=== PATIENT | female | born 1995 | race Caucasian/White ===

== ENCOUNTER 2017-06-05 03:21 | Emergency (ER) | payer OTHER ==
[~2017-06-05] VITALS: Ht 172.7 cm; Wt 72.6 kg
[2017-06-05] MEDS ORDERED: AMOX-358 PO (03:41)
[2017-06-05] MEDS ORDERED: NORE-122 PO (03:41)
--- NOTE | 2017-06-05 03:47 | ED EENT ---
History of Present Illness General Chief Complaint: Oral/Throat Problems Stated Complaint: THROAT PAIN Nursing Triage Note: c/o throat pain, reports was evaluated at urgent care yesterday for same and given augmentin Source: patient Exam Limitations: no limitations History of Present Illness Time seen by provider: 03:38 Initial Comments Patient has ER by private conveyance with a chief complaint of 2 days progressively worsening sore throat and inability to swallow foods. She has had malaise and body aches. She was seen in urgent care area stay where they did a negative rapid strep test and a negative mono test. She was told that they thought it was probably infectious and bacterial nature so they put her on Augmentin. She is gotten 2 doses in. She does not feel is gotten any better. She 's not using any [id number]'s, Tylenol, ibuprofen, Chloraseptic, saltwater gargle, etc. Patient's having no fevers, nausea vomiting, diarrhea, rash. Allergies and Home Medications Allergies Coded Allergies: No Known Drug Allergies (Unverified , 06/05/17) Home Medications Amoxicillin/Potassium Clav 1 Each Tablet, 1 EACH PO, (Reported) Norethindrone-E.estradiol-Iron 1 Each Tablet, 1 EACH PO, (Reported) Review of Systems Constitutional: No chills, No diaphoresis Eyes: Denies Drainage, Denies Pain Ears: Denies Pain, Denies Bloody Discharge, Denies Clear Discharge, Denies Purulent Discharge, Denies Serosanguinous Discharge Nose: denies pain, denies serosanguinous discharge Mouth: denies pain, denies swelling Throat: see HPI, pain, swelling, denies hoarse, painful swallowing, difficulty with fluids Respiratory: No cough, No phlegm, No short of breath, No wheezing Cardiovascular: No edema, No syncope Gastrointestinal: No abdominal pain, No constipation, No diarrhea, No nausea, No vomiting : No (oral contraceptives) Musculoskeletal: No back pain, No joint pain Skin: No pruritus, No rash Neurological: Denies Headache, Denies Numbness, Denies Paresthesia Past Jmcfoin-Icybox-Jouhfw Hx Patient Social History Alcohol Use: Denies Use Recreational Drug Use: No Smoking Status: Never a Smoker Recent Foreign Travel: No Contact w/Someone Who Travel: No Recent Infectious Disease Expo: No Physical Abuse: No Sexual Abuse: No Surgeries History of Surgeries: No Respiratory History of Respiratory Disorde: No Cardiovascular History of Cardiac Disorders: No Neurological History of Neurological Disord: No Genitourinary History of Genitourinary Disor: No Gastrointestinal History of Gastrointestinal Di: No Musculoskeletal History of Musculoskeletal Dis: No Endocrine History of Endocrine Disorders: No HEENT History of HEENT Disorders: No Cancer History of Cancer: No Psychosocial History of Psychiatric Problem: No Suicide Risk Score: 0 Integumentary History of Skin or Integumenta: No Blood Transfusions History of Blood Disorders: No Physical Exam Vital Signs Vital Sign - Last 12Hours 06/05/17 03:33 Temp 100.3 Pulse 121 Resp 16 B/P (MAP) 118/87 Pulse Ox 98 General Appearance: WD/WN, mild distress Eyes: bilateral eye normal inspection, bilateral eye PERRL, bilateral eye EOMI Ears: bilateral ear auricle normal, bilateral ear canal normal, bilateral ear TM normal Nose: normal inspection, No discharge Mouth/Throat: No dental tenderness, No excessive drooling, No pharynx swelling , No tongue swollen, tonsillar exudate, tonsillar swelling (3+), No uvula swelling Neck: non-tender, full range of motion, supple, normal inspection, other ( bilateral anterior cervical chain shotty lymphadenopathy.) Cardiovascular: normal peripheral pulses, regular rate, rhythm, no edema Respiratory: lungs clear, normal breath sounds Neurologic/Psychiatric: alert, oriented x 3 Skin: normal color, warm/dry Progress/Results/Core Measures Results/Orders Lab Results Laboratory Tests Test 06/05/17 03:44 Range/Units Group A Streptococcus Screen NEGATIVE NEGATIVE My Orders Orders - ANGÉLICA LEONG Rapid Strep A Screen (06/05/17 03:41) Vital Signs/I&O Vital Sign - Last 12Hours 06/05/17 03:33 Temp 100.3 Pulse 121 Resp 16 B/P (MAP) 118/87 Pulse Ox 98 Blood Pressure Mean: 97 Progress Note : Time: 03:48 Progress Note Spite yesterday having a negative rapid strep we'll go ahead and repeat rapid step tonight. And I would encourage her even if it was negative to finish the Augmentin. We will also provide her some salt water to gargle for immediate symptom relief. Departure Impression Impression: Primary Impression: Pharyngitis Qualified Codes: J02.9 - Acute pharyngitis, unspecified Disposition: 01 HOME, SELF-CARE Condition: Stable Departure-Patient Inst. Decision time for Depature: 03:56 Referrals: NO,LOCAL PHYSICIAN (PCP) Primary Care Physician Patient Instructions: Viral Pharyngitis (DC) Add. Discharge Instructions: Drink plenty of fluids and use salt water gargles every 2-4 hours as needed to control your symptoms. Get plenty of rest over the next couple days. You can also use vapor rubs, Chloraseptic sprays, lozenges, Tylenol, Motrin, humidifiers to control your symptoms. He may continue your antibiotics as long as you are having any side effects. Typical course is 5-7 days. All discharge instructions reviewed with patient and/or family. Voiced understanding. Work/School Note: Work Release Form Date Seen in the Emergency Department: Jun 05, 2017 Return to Work: Jun 07, 2017 Restrictions: No Restrictions ANGÉLICA LEONG Jun 05, 2017 03:47
[2017-06-05 04:02] VITALS: BP 122/85
== END 2017-06-05 04:02 | disposition home or self-care (01) ==
LOC: ER 03:28
DX: J02.9 Acute pharyngitis, unspecified (principal)
CPT/HCPCS: 87430; 99282